=== PATIENT | female | born 1980 | race Caucasian/White ===

== ENCOUNTER 2017-04-13 18:52 | Emergency (ER) | payer SELFPAY ==
[~2017-04-13] VITALS: Ht 160 cm; Wt 81.7 kg
[~2017-04-13 18:52] MED LIST: ALBU90OI INH; AMPDEX5 PO; Amoxil400 MG/5 M PO; BENZ100A PO; IBUP600 PO; Monodox100 MG PO; NYST237S MT; PROCODE120 PO; SPACE CHAMBER1 EACH MC
== END 2017-04-13 19:54 | disposition home or self-care (01) ==
LOC: ER 18:52
DX: J06.9 Acute upper respiratory infection, unspecified (principal); F90.9 Attention-deficit hyperactivity disorder, unspecified type; Z87.01 Personal history of pneumonia (recurrent); Z87.891 Personal history of nicotine dependence
CPT/HCPCS: 87081; 87430; 99283

== ENCOUNTER 2017-04-26 10:44 | Emergency (ER) | payer SELFPAY ==
[~2017-04-26] VITALS: Ht 160 cm; Wt 86.2 kg
[2017-04-26] MEDS ORDERED: BENZ100A PO (13:05)
== END 2017-04-26 13:13 | disposition home or self-care (01) ==
LOC: ER 10:44
DX: R05 Cough (principal); F90.9 Attention-deficit hyperactivity disorder, unspecified type; Z87.891 Personal history of nicotine dependence
CPT/HCPCS: 71046; 99283

== ENCOUNTER 2017-06-05 17:08 | Emergency (ER) | payer SELFPAY ==
[~2017-06-05] VITALS: Ht 160 cm; Wt 90.7 kg
[2017-06-05] MEDS ORDERED: PRED20 PO (18:45)
== END 2017-06-05 18:59 | disposition home or self-care (01) ==
LOC: ER 17:08
DX: R05 Cough (principal); Z87.891 Personal history of nicotine dependence
CPT/HCPCS: 96372; 99283; J1885